=== PATIENT | male | born 1965 | race Caucasian/White ===

== ENCOUNTER 2020-04-04 18:10 | Observation (INO) | payer MEDICARE, MEDICAID, SELFPAY ==
[2020-04-04] VITALS (11 sets, daily range): BP systolic 120–174; BP diastolic 82–98; PULSE 72–95; RESP 16–19; TEMP 36.2–36.9; O2SAT 91–99; BMI 63.6
--- NOTE | 2020-04-04 18:55 | DI.RAD.S_ITS ---
PROCEDURE: XR FOREARM RT 2V INDICATIONS: fracture TECHNIQUE: 2 views of the forearm were acquired. COMPARISON: None. FINDINGS: Bones: There is a comminuted, displaced fracture of the distal right radius better described on wrist radiograph from earlier same day. Please see separate report for details. The ulna and visualized right elbow joint appear intact. Abnormal widening of the distal radial ulnar joint. Soft tissues: No suspicious soft tissue calcifications or masses. No elbow joint effusion visualized. IMPRESSION: 1. Comminuted, displaced distal right radial fracture with abnormal widening of the distal radial ulnar joint. Concurrent ligamentous injury suspected. 2. No acute fracture identified in the ulna. 3. Right elbow appears intact. Dictated by: Flex Rendon M.D. on 04/04/2020 at 19:57 Approved by: Flex Rendon M.D. on 04/04/2020 at 19:59
--- NOTE | 2020-04-04 18:55 | DI.RAD.S_ITS ---
PROCEDURE: XR WRIST RT MIN 3V INDICATIONS: fracture TECHNIQUE: 4 views of the wrist were acquired. COMPARISON: None. FINDINGS: Bones: Comminuted distal right radial fracture with dorsal and radial displacement of the distal fracture fragment. There is also abnormal widening of the distal radial ulnar joint. Ligamentous injury is suspected. The ulna appears intact. Visualized carpal bones appear maintained. No suspicious bony lesions. Scaphoid view: Scaphoid appears intact. The scapholunate interval appears to be maintained. Soft tissues: No suspicious soft tissue calcifications. IMPRESSION: Comminuted distal right radial fracture with moderate radial and dorsal dislocation of the distal fracture fragment. Abnormal widening of the distal radial ulnar joint suggestive of ligamentous injury. Dictated by: Flex Rendon M.D. on 04/04/2020 at 19:55 Approved by: Flex Rendon M.D. on 04/04/2020 at 19:57
--- NOTE | 2020-04-04 19:05 | ED.GENADULT ---
HPI - General Adult General Chief complaint: Extremity Injury, Upper Stated complaint: Fall, compund fx R wrist Time Seen by Provider: 04/04/20 18:37 Source: EMS Mode of arrival: EMS Limitations: no limitations History of Present Illness HPI narrative: Patient is a 54-year-old male brought in by EMS for evaluation of a right wrist fracture. Patient states that he was pulling on a branch at home when either he slipped off the branch of the branch broke and he fell back landing on an outstretched hand. Had immediate deformity. Has bone exposure. Area was covered with a bandage by EMS prior to arrival. Patient reports no other injuries from the event. Related Data Allergies Allergy/AdvReac Type Severity Reaction Status Date / Time No Known Drug Allergies Allergy Verified 04/04/20 18:24 Review of Systems Constitutional Constitutional: Denies fever(s), Denies frequent falls and Denies headache(s) ENT Ears, Nose, Mouth, and Throat: Denies headache(s) Cardiovascular Cardiovascular: Denies rapid heart rate and Denies dyspnea Respiratory Respiratory: Denies dyspnea Gastrointestinal Gastrointestinal: Denies abdominal pain, Denies nausea and Denies vomiting Musculoskeletal Musculoskeletal: Denies tingling Comments: Right wrist pain/deformity Integumentary/Breasts Comments: Bone sticking through skin Joey wrist Neurologic Neurologic: Denies behavioral changes, Denies frequent falls, Denies headache(s) and Denies tingling Psychiatric Psychiatric: Denies behavioral changes Hematologic/Lymphatic Hematologic/Lymphatic: Denies easy bleeding and Denies easy bruising Allergic/Immunologic Allergic/Immunologic: Denies urticaria Patient History Medical History Chronic back pain (Acute) COPD (chronic obstructive pulmonary disease) (Acute) Social History Smoking Status: Current every day smoker Smoking Status: Current every day smoker alcohol intake frequency: 0-2 drinks per day Substance Use Type: does not use Exam Initial Vital Signs Initial Vital Signs: Vital Signs Temperature 98.4 F 04/04/20 18:22 Pulse Rate 82 04/04/20 18:22 Respiratory Rate 16 04/04/20 18:22 Blood Pressure 150/93 H 04/04/20 18:22 Pulse Oximetry 95 04/04/20 18:22 Const General: cooperative, No comfortable (Uncomfortable), well developed and well groomed Limitations: mental status not altered HENMT Head: normal to inspection and normocephalic Resp Effort & Inspection: normal respiratory effort Auscultation: clear to auscultation bilaterally Cardio Rate: regular rate Pulses: radial pulses present on the right GI Inspection: non-distended Skin Other: Patient with a laceration to the ulnar aspect of the right wrist with the distal aspect of the ulna protruding. Neuro General: patient alert and patient awake Cognition: normal cognition Speech: speech normal Sensory Exam: no sensory deficits noted Extrem Other: Patient with obvious deformity with bone protrusion of the right wrist Psych Appearance: grossly normal and well kempt Procedures Orthopedic Fracture Reduction Fracture #1: Time Out Performed: Yes Side: right Fracture Reduction Location: other (Distal radius) Analgesia: procedural sedation Technique: direct manipulation Post Reduction X-rays Demonstrate: acceptable reduction Post-reduction neuro exam: no change Post-reduction vascular exam: no change Splint Applied: Yes Patient Tolerated Procedure: Well Orthopedic Splinting/Casting Injury #1: Side: right Upper Extremity Injury Location: wrist Upper Extremity Immobilizer: sugar tong splint Post splinting neuro exam: intact Post splinting vascular exam: intact Placed by: Provider Procedural Sedation Consent signed: No Time out performed: Yes Indication: fracture/dislocation reduction Presedation Evaluation: See HPI Preparation: manager cardiac cath applied, pulse oximeter, capnometry used and supplemental O2 applied IV Propofol dose (mg): 150 ED Sedation Level: Moderate (Concious) Patient Tolerated Procedure: Well Complications: hypoventilation Interventions: Airway repositioned and Assist by BVM Scores GCS Mari coma scale eye opening: Spontaneous Mari coma scale verbal response: Orientated Crapo coma scale motor response: Obey commands Mari coma scale total score: 15 Course Orders Ordered: ED Orders 04/04/20 18:55 XR forearm RT 2V Stat XR wrist RT min 3V Stat 04/04/20 19:08 Basic Metabolic Panel Stat Complete Blood Count AUTO DIFF Stat 04/04/20 19:52 RT Consult Eval and Treat Now 04/04/20 20:57 XR wrist RT 2V Stat 04/04/20 20:58 Consult to Orthopedic Surgery Stat Hydromorphone HCl (Dilaudid) 0.5 mg IV Q2H PRN PRN Reason: Pain, Severe (7-10) Last Admin: 04/04/20 22:17 Dose: 0.5 mg Documented by: NEETA Sodium Chloride (Normal Saline 0.9%) 1,000 mls @ 125 mls/hr IV CONT VIANEY Last Infusion: 04/04/20 22:25 Dose: 0 mls/hr Documented by: Admin: 04/04/20 22:16 Dose: 125 mls/hr Documented by: NEETA Ondansetron HCl (Zofran) 4 mg IV Q4HR PRN PRN Reason: Nausea And Vomiting Discontinued Medications Cefazolin Sodium (Ancef Vial) 2 gm IV NOW ONE Stop: 04/04/20 18:57 Last Admin: 04/04/20 19:27 Dose: 2 gm Documented by: JACOBO Fentanyl (Sublimaze) 100 mcg IV NOW ONE Stop: 04/04/20 19:47 Last Admin: 04/04/20 20:27 Dose: 100 mcg Documented by: JACOBO Hydromorphone HCl (Dilaudid) 1 mg IV NOW ONE Stop: 04/04/20 18:56 Last Admin: 04/04/20 19:27 Dose: 1 mg Documented by: JACOBO Hydromorphone HCl (Dilaudid) 1 mg IV NOW ONE Stop: 04/04/20 19:18 Last Admin: 04/04/20 19:27 Dose: 1 mg Documented by: JACOBO Hydromorphone HCl (Dilaudid) 1 mg IV NOW ONE Stop: 04/04/20 21:12 Last Admin: 04/04/20 21:16 Dose: 1 mg Documented by: JACOBO Propofol (Diprivan) 200 mg IV NOW ONE Stop: 04/04/20 19:56 Last Admin: 04/04/20 21:03 Dose: 150 mg Documented by: JACOBO Vital Signs Vital signs: Vital Signs - 8 hr 04/04/20 18:22 04/04/20 19:00 04/04/20 20:00 Temperature 98.4 F Pulse Rate 82 93 H Respiratory Rate 16 Blood Pressure 150/93 H 174/89 H 120/91 H Pulse Oximetry 95 04/04/20 20:30 Temperature Pulse Rate 81 Respiratory Rate Blood Pressure 138/93 H Pulse Oximetry 96 Medical Decision Making Lab Data Lab results reviewed: Yes I reviewed the patient's lab results. Result diagrams: 04/04/20 19:08 04/04/20 19:08 Labs: Lab Results 04/04/20 04/04/20 Range/Units 19:08 19:08 WBC 7.1 (4.5-11.0) X10^3/uL RBC 4.33 L (4.5-5.9) X10^6/uL Hgb 13.7 (13.5-17.5) g/dL Hct 41.3 (41-53) % MCV 95.5 (80-100) fL MCH 31.7 (26-34) PG MCHC 33.2 (30-36) % RDW 14.4 (11.6-14.8) % Plt Count 213 (150-400) X10^3/uL Neut % (Auto) 71.4 (50-75) % Lymph % (Auto) 21.3 L (25-40) % Ward % (Auto) 5.4 (3-14) % Eos % (Auto) 1.2 L (2-4) % Baso % (Auto) 0.7 (0-2) % Neut # (Auto) 5100 (4952-7510) /uL Lymph # (Auto) 1500 (7999-7915) /uL Ward # (Auto) 400 (0-900) /uL Eos # (Auto) 100 (0-450) /uL Baso # (Auto) 100 (0-100) /uL Sodium 137 (137-145) mmol/L Potassium 4.6 (3.4-5.1) mmol/L Chloride 105 (98-107) mmol/L Carbon Dioxide 27 (22-32) mmol/L BUN 11 (9-20) mg/dL Creatinine 0.84 (0.66-1.25) mg/dL Estimated GFR > 60.0 (>60) mL/min BUN/Creatinine Ratio 13.1 (6-22) Glucose 104 H (70-100) mg/dL Calcium 9.2 (8.4-10.2) mg/dL Imaging Data Extremity x-ray #1: Radiologist's Impression: [address] [address] XRay Report Signed Patient: Margareth Cortez#: [id number] : 1965Acct:[id number] Age/Sex: 54 / MDate of Service: 04/04/20 Loc: ED Accession Number: [id number] Procedure: XR forearm RT 2V Ordering Provider: Noel Urbina D.O. PROCEDURE: XR FOREARM RT 2V INDICATIONS: fracture TECHNIQUE: 2 views of the forearm were acquired. COMPARISON: None. FINDINGS: Bones: There is a comminuted, displaced fracture of the distal right radius better described on wrist radiograph from earlier same day. Please see separate report for details. The ulna and visualized right elbow joint appear intact. Abnormal widening of the distal radial ulnar joint. Soft tissues: No suspicious soft tissue calcifications or masses. No elbow joint effusion visualized. IMPRESSION: 1. Comminuted, displaced distal right radial fracture with abnormal widening of the distal radial ulnar joint. Concurrent ligamentous injury suspected. 2. No acute fracture identified in the ulna. 3. Right elbow appears intact. Dictated by: Flex Rendon M.D. on 04/04/2020 at 19:57 Approved by: Flex Rendon M.D. on 04/04/2020 at 19:59 Extremity x-ray #2: Radiologist's Impression: [place] [address] XRay Report Signed Patient: Margareth Cortez#: [id number] : 1965Acct:[id number] Age/Sex: 54 / MDate of Service: 04/04/20 Loc: ED Accession Number: [id number] Procedure: XR wrist RT min 3V Ordering Provider: Noel Urbina D.O. PROCEDURE: XR WRIST RT MIN 3V INDICATIONS: fracture TECHNIQUE: 4 views of the wrist were acquired. COMPARISON: None. FINDINGS: Bones: Comminuted distal right radial fracture with dorsal and radial displacement of the distal fracture fragment. There is also abnormal widening of the distal radial ulnar joint. Ligamentous injury is suspected. The ulna appears intact. Visualized carpal bones appear maintained. No suspicious bony lesions. Scaphoid view: Scaphoid appears intact. The scapholunate interval appears to be maintained. Soft tissues: No suspicious soft tissue calcifications. IMPRESSION: Comminuted distal right radial fracture with moderate radial and dorsal dislocation of the distal fracture fragment. Abnormal widening of the distal radial ulnar joint suggestive of ligamentous injury. Dictated by: Flex Rendon M.D. on 04/04/2020 at 19:55 Approved by: Flex Rendon M.D. on 04/04/2020 at 19:57 Postreduction x-ray: Radiologist's Impression: [address] [address] XRay Report Signed Patient: Margareth Cortez#: [id number] : 1965Acct:[id number] Age/Sex: 54 / MDate of Service: 04/04/20 Loc: LB554-8 Accession Number: [id number] Procedure: XR wrist RT 2V Ordering Provider: Noel Urbina D.O. PROCEDURE: XR WRIST RT 2V INDICATIONS: post reduction TECHNIQUE: 3 views of the wrist were acquired. COMPARISON: [facility], CR, XR WRIST RT MIN 3V, 04/04/2020, 18:50. FINDINGS: Bones: Status post interval closed reduction of comminuted distal right radial fracture in improved alignment. There is mild residual dorsal displacement. Improved alignment with decreased widening of the distal radioulnar joint. No suspicious bony lesions. Soft tissues: No suspicious soft tissue calcifications. IMPRESSION: Status post interval closed reduction of comminuted distal right radial fracture with improved alignment. Dictated by: Flex Rendon M.D. on 04/04/2020 at 21:42 Approved by: Flex Rendon M.D. on 04/04/2020 at 21:43 MDM Narrative Medical decision making narrative: Patient with obvious deformity and open fracture of the right wrist. Discussed the case with Dr. De La Rosa with Orthopedics who recommended cleaning and reducing the open fracture and placing him in a splint and admitting under her for surgery tomorrow morning. This was performed. The distal ulna was cleaned with Betadine solution prior to reduction. He was given antibiotics in the emergency department. Patient gave verbal consent for the sedation with his at bedside. Patient was neurovascularly intact prior to the reduction Dr. De La Rosa evaluated the post reduction x-rays and patient will be admitted for surgery tomorrow morning. Discharge Plan Departure Patient Disposition: Admitted as Observation Clinical Impression: Fracture of radius, distal, right, open Qualifiers: Encounter type: initial encounter Fracture morphology: unspecified fracture morphology Admit Date/Time: 04/04/20 20:58 Admit Provider: Ellen De La Rosa
[2020-04-04 19:19] LABS: Add Manual Diff / Slide Review NO; Basophils Absolute Auto 100 /uL (0-100); Basophils Percent Auto 0.7 % (0-2); Eosinophils Absolute Auto 100 /uL (0-450); Eosinophils Percent Auto 1.2 % (2-4); Hematocrit 41.3 % (41-53); Hemoglobin 13.7 g/dL (13.5-17.5); Lymphocytes Absolute Auto 1500 /uL (1100-4500); Lymphocytes Percent Auto 21.3 % (25-40); Mean Corpuscular HGB Conc 33.2 % (30-36); Mean Corpuscular Hemoglobin 31.7 PG (26-34); Mean Corpuscular Volume 95.5 fL (80-100); Monocytes Absolute Auto 400 /uL (0-900); Monocytes Percent Auto 5.4 % (3-14); Neutrophils Absolute Auto 5100 /uL (1500-7000); Neutrophils Percent Auto 71.4 % (50-75); Platelet Count 213 X10^3/uL (150-400); Red Blood Cell Count 4.33 X10^6/uL (4.5-5.9); Red Cell Distribution Width 14.4 % (11.6-14.8); White Blood Cell Count 7.1 X10^3/uL (4.5-11.0)
[2020-04-04] MEDS: HYDROMORPHONE 1 MG INJ IV ×2 (19:27)
[2020-04-04] MEDS: CEFAZOLIN 1 GM VIAL 2 GM IV (19:27)
[2020-04-04 19:29] LABS: BUN Creatinine Ratio 13.1 (6-22); Blood Urea Nitrogen 11 mg/dL (9-20); Calcium 9.2 mg/dL (8.4-10.2); Carbon Dioxide 27 mmol/L (22-32); Chloride 105 mmol/L (98-107); Estimated Glomerular Filt Rate > 60.0 mL/min (>60); Glucose 104 mg/dL (70-100); HEMOLYSIS < 15 (0-50); Potassium 4.6 mmol/L (3.4-5.1); Sodium 137 mmol/L (137-145)
[2020-04-04] MEDS: fentaNYL 100 MCG/2 ML INJ IV (20:27)
--- NOTE | 2020-04-04 20:45 | PC.NURSE ---
sedation performed at bedside by md to reduction of fracture to r wrist splint placed post reduction
--- NOTE | 2020-04-04 20:57 | DI.RAD.S_ITS ---
PROCEDURE: XR WRIST RT 2V INDICATIONS: post reduction TECHNIQUE: 3 views of the wrist were acquired. COMPARISON: [facility], CR, XR WRIST RT MIN 3V, 04/04/2020, 18:50. FINDINGS: Bones: Status post interval closed reduction of comminuted distal right radial fracture in improved alignment. There is mild residual dorsal displacement. Improved alignment with decreased widening of the distal radioulnar joint. No suspicious bony lesions. Soft tissues: No suspicious soft tissue calcifications. IMPRESSION: Status post interval closed reduction of comminuted distal right radial fracture with improved alignment. Dictated by: Flex Rendon M.D. on 04/04/2020 at 21:42 Approved by: Flex Rendon M.D. on 04/04/2020 at 21:43
[2020-04-04] MEDS: propofoL 200 MG/20 ML VIAL IV (21:03)
[2020-04-04] MEDS: HYDROMORPHONE 0.5 MG INJ 1 MG IV (21:16)
--- NOTE | 2020-04-04 21:53 | P.HP_ITS ---
History of Present Illness History of Present Illness Date Patient Seen: 04/05/20 Time Patient Seen: 07:29 Date of Onset of Symptoms: 04/04/20 Chief complaint: Fall, compund fx R wrist Narrative: Christian is a 54-year-old [id number] male that fell back onto his right wrist. He was walking around his track and a stick or limb was sti cking up and about to hit him in the face, he pushed it away, but lost his balance fell backwards landing on his right wrist. He sustained an open fracture dislocation of his wrist with a fracture of the radius and a open extruded ulna head. He is a smoker smokes approximately 3/4 of a pack per day. History of COPD. History of hypertension. No allergies to medications. Currently has family with him home. Denies any other injuries. Does have a long history of low back pain. Denies numbness or tingling endorses throbbing at his wrist and also pain up around the proximal aspect of the sugar-tong splint. Pain medication does improve this. He had an irrigation debridement reduction in the emergency room where he received antibiotics. He has been on scheduled antibiotics on the floo r. He is not on any blood thinners. ate a meal 4:00 p.m. Patient History Medical History Chronic back pain (Acute) COPD (chronic obstructive pulmonary disease) (Acute) Family & Social History Safety & Behavioral: Feels Safe in Current Yes Environment Been Physically Hurt or No Threatened By a Person Tobacco & Substance use: Smoking Status Current every day smoker alcohol intake frequency 0-2 drinks per day Substance Use Type does not use Meds Home Medications and Allergies Allergies Allergy/AdvReac Type Severity Reaction Status Date / Time No Known Drug Allergies Allergy Verified 04/04/20 18:24 Review of Systems Review of Systems Narrative: COPD low back pain hypertension ROS: Yes All systems reviewed with the patient and are negative except as otherwise documented Exam Vital Signs (past 8 hours): - 04/04/20 18:22 04/04/20 19:00 04/04/20 20:00 Temperature 98.4 F Pulse Rate 82 93 H Respiratory Rate 16 Blood Pressure 150/93 H 174/89 H 120/91 H Pulse Oximetry 95 04/04/20 20:30 04/04/20 21:03 Temperature Pulse Rate 81 78 Respiratory Rate 18 Blood Pressure 138/93 H Pulse Oximetry 96 Oxygen Delivery Method Room Air Narrative Exam Narrative: General exam alert oriented male no acute distress appears in moderate discomfort lifting his right arm in the splint above his head. Room smells of smoke/cigarettes HEENT exam normocephalic atraumatic Respiratory exam unlabored on room air lungs clear to auscultation bilaterally CV exam regular rate and rhythm Abdomen soft Right upper extremity in the splint. As slightly wiggles fingers and thumb. Sensation grossly intact. A digits have some dirt on them and under the nails. Brisk capillary refill. Soft upper arm. No tenderness at the shoulder. Left upper extremity full range of motion no deformities no tenderness. Neurovascularly intact Bilateral lower extremities full range of motion no tenderness. Atraumatic. Motor sensory intact Objective Labs Result Diagrams: 04/04/20 19:08 04/04/20 19:08 Labs: Laboratory Results - last 24 hr 04/04/20 04/04/20 19:08 19:08 WBC 7.1 RBC 4.33 L Hgb 13.7 Hct 41.3 MCV 95.5 MCH 31.7 MCHC 33.2 RDW 14.4 Plt Count 213 Neut % (Auto) 71.4 Lymph % (Auto) 21.3 L Wallace % (Auto) 5.4 Eos % (Auto) 1.2 L Baso % (Auto) 0.7 Neut # (Auto) 5100 Lymph # (Auto) 1500 Wallace # (Auto) 400 Eos # (Auto) 100 Baso # (Auto) 100 Sodium 137 Potassium 4.6 Chloride 105 Carbon Dioxide 27 BUN 11 Creatinine 0.84 Estimated GFR > 60.0 BUN/Creatinine Ratio 13.1 Glucose 104 H Calcium 9.2 Assessment & Plan Assessment and plan (1) Fracture of radius, distal, right, open: Qualifiers: Encounter type: initial encounter Fracture morphology: unspecified fracture morphology Status: Acute (2) Tobacco abuse: Problem details: Thorough counseling regarding smoking cessation was had today. Discussed the FX on wound and bone healing. Encouraged patient to stop smoking for wound and bone healing as well as generalized health. Status: Acute Assessment & Plan narrative: distal radius fx, displaced and open extruded ulnar head with distal DRUJ druption, galeazzi variant. Pt ate meal at 4pm.would not be NPO until MN.VSS. rec ED I&D, reduction, splinting and IV abx, will get scheduled IV abx and admission, NPO MN and OR first thing AM for I&D ulnar laceration.ulnar head extrusion, ORIF R DR and possible pinning DRUJ. The risks and benefits of the procedure have been discussed with the patient even opportunity to ask questions. The risks of surgery include but are not limited to infection, malunion, nonunion, persistence of pain, damage to nerves and blood vessels, posttraumatic arthritis, DVT, PE, cardiopulmonary complications and . The patient expressed a thorough understanding of the risks and benefits of surgery and has elected to proceed. Consent was signed. COVID-19 COVID-19 status: Result pending Quality VTE Deep Vein Thrombosis/Pulmonary Embolism Present on Admission: No
[2020-04-04 21:55] LABS: COVID19 -Nasal RAPID Negative (Negative)
[2020-04-04] MEDS: SODIUM CHLORIDE 0.9% 1,000 ML 125 ML IV (22:16)
[2020-04-04] MEDS: HYDROMORPHONE 0.5 MG INJ IV ×2 (22:17→23:43)
--- NOTE | 2020-04-04 23:28 | PC.NURSE ---
Admit/Evening Shift Note- Patient arrived to room via stretcher from ER at 2235. Admit questions done, and medications reviewed. Oriented patient to bed and bed controls, room, lights, phone, menu, bathroom, and call cornelius/tv remote. right arm insling and up on pillows. Safety measures in place. bed alarm activated. call belland phone within reach. Will continue to monitor.
[2020-04-05] VITALS (19 sets, daily range): BP systolic 100–173; BP diastolic 53–89; PULSE 66–84; RESP 10–23; TEMP 35.9–36.8; O2SAT 85–100; BMI 28.9
[2020-04-05] MEDS: HYDROMORPHONE 0.5 MG INJ IV ×6 (01:44→19:22)
[2020-04-05] MEDS: CEFAZOLIN 2 GM/100 ML FROZ.PIGGY IV ×3 (03:07→15:45)
[2020-04-05] MEDS: OXYCODONE IR 10 MG TABLET PO ×4 (03:52→18:38)
--- NOTE | 2020-04-05 07:25 | PC.NURSE ---
Patient lost 2 IVs this shift. The cannulla pulls up enough to kink and occlude, while still being taped. The newest IV is in left hand, which IV site would not accept, states it was a duplicate. So I had to chart it was in the left wrist.
--- NOTE | 2020-04-05 07:44 | PM.PREOP ---
Pre-operative Note COVID-19 COVID-19 status: Negative Result date/Date tested (Pos, Neg/Pending): 04/04/20 Interval Note History & Physical reviewed/Exam performed by Physician: Yes Changes to H&P: No
--- NOTE | 2020-04-05 07:45 | P.OP_ITS ---
Operative Date/Time/Diagnoses Date of procedure: 04/05/20 Time of procedure: 08:30 Pre-op diagnosis: 1. Displaced extra-articular fractured distal radius 2. Open dislocation distal radial ulnar joint 3. Tobacco use disorder Post-op diagnosis: same Procedure & Clinicians Procedure: 1. Open reduction internal fixation extra-articular right distal radius fracture CPT code 76433 2. Open reduction internal fixation, pinning open dislocation distal radial ulnar joint CPT code 49556-25 3. Debridement of skin subcutaneous tissue muscle and bone at the site of an open distal radial ulnar joint dislocation CPT code 67430 Same procedure as scheduled: Yes Indications: Patient is a 54-year-old girvc-iget-djtcnpei male that fell back onto his outstretched right hand he sustained a open Galeazzi variant injury with extrusion of the ulnar head open traumatic dislocation of the distal radial ulnar joint and fracture of the distal radius. He was seen in the emergency room washed out reduced and received IV antibiotics. Vital signs were stable. He had just consumed medial so he was admitted on scheduled antibiotics and scheduled for operative debridement and treatment status safe interval. COVID- 19 testing was obtained and was negative. The risks and benefits of the procedure have been discussed with the patient even opportunity to ask questions. The risks of surgery include but are not limited to infection, malunion, nonunion, persistence of pain, damage to nerves and blood vessels, posttraumatic arthritis, DVT, PE, cardiopulmonary complications and . The patient expressed a thorough understanding of the risks and benefits of surgery and has elected to proceed. Consent was signed. Surgeon: Ellen De La Rosa Click Yes if Unassisted: Yes Anesthesia Type: General and Local Operative Notes Findings: Patient sustained a right open Galeazzi variant fracture dislocation with fracture of the distal radius and open extrusion of the distal ulnar head and dislocation of the DRUJ.Open ulnar head extrusion 4 cm longitudinal wound right over the distal ulna for the open distal radius ulnar joint dislocation had occurred. Small amount of foreign material-specs of dirt were removed. Following I&D of the open ulna new drapes and gloves were changed. Then open reduction internal fixation of the distal radius fracture was undertaken with a [employer] plate. Following this the distal radioulnar joint Shuck test was completed and was unstable therefore the DRUJ was pinned with 2x062 K-wires Closure Type: primary Specimen(s): none sent Applied: implant(s) (Standard distal radius plate hand innovations volar distal radius plate and screws. 2 x 062 K-wires for DRUJ) Estimated Blood Loss (mL): 30 Blood products transfused: none Tourniquet time (min): 90 Procedure in detail: Patient was seen in the preoperative area the site of surgery was marked informed consent confirmed. Patient was brought back to the operating room by the anesthesia team and placed supine on the operative table with a hand table on the right side. All bony prominences were well-padded. Well-padded brachial tourniquet was placed. General anesthetic was administered. The right upper extremity was prepped and draped in the standard sterile fashion. A formal time-out procedure was performed confirming patient's side and site of surgery administration of preoperative antibiotics. All were i n agreement. SCDs were 1 the lower extremities. Esmarch was used for exsanguination the tourniquet was elevated to 250 mm of mercury. Attention was turned to the I and D. Attention was turned to the open wound at the ulnar aspect of the arm or the ulnar head extrusion had occurred. The skin edges and soft tissues fascia and muscle were debrided. The bone in was also cleansed and debrided. 3 L of sterile saline with cysto tubing was used for thorough irrigation. Note the ulnar head was completely exposed for this irrigation. There was small specks of foreign material or dirt that were irrigated out of the wound. Once this was completed the ulna was again reduced the drapes were changed and gloves were changed and attention turned to the right distal radius. Through a separate standard volar FCR approach incision was taken over the distal radius and this was a zigzag across the wrist crease in the extended FCR fashion. The sheath of the FCR was then opened the FCR tendon was retracted ulnarly to protect the palmar cutaneous branch of the median nerve. The floor of the FCR was then opened to expose the deep muscles. The FPL was retracted ulnarly and the pronator quadratus was released from the radial border and reflected ulnar to expose the distal radius in the distal radius fracture. Fracture was disimpacted and cleaned. Note there was a free fragment ulnar within the carpal tunnel this was completely devascularized was removed. The radial shaft was pronated in order to release the hematoma and periosteum dorsally and the brachioradialis was released from the distal fragment. Reduction was obtained and held with a K-wire. The standard volar distal radius right hand innovations plate was selected and fit to the bone. This was placed provisionally with a K-wire to check the distal placement once this was satisfactory and nonlocking 3 5 screw was placed in the oblong hole and secured. Distal screws were then placed in the plate starting ulnarly with nonlocking screws followed by locking screws and pegs. Once this was completed the regional nonlocking screws at the distal aspect of the fracture were changed out for a locking pegs to reduce prominence. Then the final nonlocking shaft screws were placed proximally. Once the distal radius fixation was completed the ulnar shock test was completed for the DRUJ which was unstable. This was felt to even be still unstable in supination therefore the decision was made to pin the DRUJ. 2061 K-wires were advanced from the ulna into the distal radius while holding the DRUJ UJ reduced in supination. Once this was completed the pin sites were bent and cut. The tourniquet was released hemostasis was achieved. The wounds were closed in standard layered fashion with 3 0 Vicryl and 3 0 Monocryl. 20 cc of 0.25% Marcaine with epinephrine was injected for local anesthetic. Xeroform was placed over the incision sites followed by 4x4s and Webril. The arm was splinted in a long-arm splint in supination. The patient was woken from anesthesia and taken to the PACU in good condition. There no immediate complications from this procedure. All counts were correct. Complications: none Post-operative Condition: stable Disposition: PACU Plan for aftercare: Returned to acute care floor and patient admitted for IV antibiotics. Indication for inpatient admission due to open fracture requirement of operative debridement fixation and IV antibiotics and pain control. Will receive 24 hours of postop IV antibiotics then discharged on 5 days oral antibiotics. Follow up in 1 week for wound check.
--- NOTE | 2020-04-05 08:06 | PC.NURSE ---
Addendum entered by Iliana Ramos R.N. 04/05/20 15:24: Post-op: Late entry Arrived back to room 213 at 1315. Somnolent but awakened easily. Reports RUE pain well-managed with meds given intra-op/PACU. Vitals stable, 2L O2 per NC w/ cont pulse ox in place and reading well on R hand. Patient is able to wiggle fingers of R hand, and they are warm/pink and with cap refill <2seconds. Unable to palpate radial pulse r/t splint on arm. Assisted to bathroom at change of shift where he was able to void without difficulty. Back into bed with O2 on, SCD's to BLE's and RUE elevated on pillows. Able to make needs known and calls appropriately. Light and belongings within reach, bed alarm on. Original Note: Shift summary: Patient alert and oriented X3. Very restless and with C/O severe pain in RUE. RUE splinted and he's trying to elevate it as much as possible, refusing sling. Able to move fingers of RUE slightly, hand pink/warm, cap refill <2 sec. Reported slight tingling in RUE. Medicated with PRN IV Dilaudid for breakthrough pain. NPO since admit except for water with meds. Off floor to surgery at 0800, [employer] aware that consent is on chart but still needs to be witnessed.
[2020-04-05] MEDS: LACTATED RINGERS 1,000 ML 42 ML IV ×2 (08:10→10:42)
--- NOTE | 2020-04-05 08:48 | SUR.OPER ---
Supine on padded OR bed, head on pillow, left arm secured on padded arm boards at <90 degrees abduction, Right arm on hand table under control of surgeon. Legs uncrossed, safety belt at thigh, tape over blanket over lower legs.
[2020-04-05] MEDS: BUPIVACAINE 0.25% W/ EPI 30 ML VIAL INJ (08:59)
[2020-04-05] MEDS: OXYCODONE/ACETAMINOPHEN 5/325 TABLET 1 TAB PO ×2 (11:29→11:53)
[2020-04-05] MEDS: HYDROMORPHONE 2 MG INJ IV ×4 (11:40→11:55)
[2020-04-05] MEDS: KETOROLAC 30 MG/ML VIAL IV ×3 (11:59→22:27)
[2020-04-05] MEDS: LORazepam 2 MG/ML INJ 0.25 MG IV (12:31)
--- NOTE | 2020-04-05 12:57 | SUR.PHASEI ---
Addendum entered by Rose Mary Jhaveri R.N. 04/05/20 13:18: Patient taken back to room in bed by nursing staff. Report given to receiving VIRGEN Hernandez. Patient resting peacefully in bed, wakes up appropriately when spoken to. Vital signs remain stable with bp of 130/77 and O2 sat of 94% Original Note: Patient incredibly anxious and attempting continuing to ask to go outside in PACU. Received order for 0.25mg ativan. Accidentally administered 0.5ml or 1mg ativan. Patient shows no adverse effects, is now resting peacefully in bed. All vitals now more stable than before administration of ativan and is now relaxing in bed with eyes closed and even, unlabored breathing, awakens easily when talked to. Dr. De La Rosa made aware of error, no new orders noted.
[2020-04-05] MEDS: LACTATED RINGERS 1,000 ML 100 ML IV (14:00)
[2020-04-05] MEDS: NICOTINE 14 PATCH 14 MG TOP (14:02)
--- NOTE | 2020-04-05 14:06 | CM.DANOTE ---
DCP Brief Assessment Patient is a 54 year old male who was admitted on 04/04/20 for Compound wrist Fx. Pt has [facility] and [facility] for insurance and his PCP is not listed. EMR was reviewed. Per Surgeon, pt with hx of COPD and smoking daily and has open fx dislocation of the wrist. Pt NPO for I&D and possible need for pinning to happen this morning. Per RN, pt off floor at 0800 for surgery and as of 1400 pt still not back up to the floor but out of surgery and in the recovery room. OT could be beneficial for eval and recommendations for any possible d/c planning needs tomorrow if stable. Plan: SW to follow tomorrow after pt returns from surgery and likely OT eval towards determining any d/c needs. ANCELMO Parsons
[2020-04-05] MEDS: ACETAMINOPHEN 325 MG TABLET 975 MG PO ×2 (15:25→20:40)
--- NOTE | 2020-04-05 16:10 | PT-IP ANOTE ---
Received PT orders and reviewed chart. Per nursing, pt has been ambulating to the bathroom with little assist since surgery for open R distal radius fracture. PT holds evaluation at this time and will await opinion from OT regarding any PT needs.
--- NOTE | 2020-04-05 17:26 | P.OP_ITS ---
Operative Date/Time/Diagnoses Date of procedure: 04/05/20 Time of procedure: 17:27 Pre-op diagnosis: Deep space infection left hand cellulitis with abscess L 0 3.119 Post-op diagnosis: same Procedure & Clinicians Procedure: 1. Irrigation debridement mid palmar bursa CPT code 85809 left hand 2. Removal foreign body, wood fragment left hand CPT code 89930 3. Drainage tendon sheath left middle finger CPT code 01807-17 4. drainage tendon sheath left ring finger CPT code 02534-94 Same procedure as scheduled: Yes Indications: Patient is a 46-year-old male who sustained a penetrating trauma injury to his left hand from a piece of treated would 7 days ago. This penetrated in his 3rd 4th palmar web space. He got increasing pain and swellin g. He saw his PCP at the end of the week and got Augmentin. He had this for a few days swelling pain and range of motion worsened. Swelling was worse and increasing pain suspicious for abscess possible residual foreign body. Patient was indicated for exploration drainage removal of foreign body and possible tendon sheath irrigation. In the emergency room had exquisite tenderness at the mid palmar space centered on the middle and ring finger MCP joints with flexed posturing and pain with range of motion of the ring and middle fingers. The risks and benefits of the procedure have been discussed with the patient even opportunity to ask questions. The risks of surgery include but are not limited to infection, stiffness or need for additional procedures, persistence of pain, damage to nerves and blood vessels, posttraumatic arthritis, DVT, PE, cardiopulmonary complications and . The patient expressed a thorough understanding of the risks and benefits of surgery and has elected to proceed. Consent was signed. Surgeon: Ellen De La Rosa Click Yes if Unassisted: Yes Anesthesia Type: General and Local Operative Notes Findings: Pointed swelling at the volar MCPs over the A1 thee region of the middle and ring fingers of the left hand. On incision there was gross yellow purulence that tracked throughout the mid palmar space. This did not appear to track dorsally. This did track a distally into the web spaces more superficial ly along the middle and ring fingers. Based on this tracking deep to the level of the A1 thee and the distal into the fingers of the flexor tendon sheath was opened both proximally and distally at the middle and ring fingers and irrigated. There was no gross purulence noted with in the tendon sheath itself however there was gross purulence all throughout the mid palmar space surrounding these areas. A wood splinter remain it was found a volarly overlying the 3rd A1 thee Closure Type: not applicable Specimen(s): other (Culture and foreign body-with splinter) Applied: other (Gauze packing was placed) Estimated Blood Loss (mL): 20 Blood products transfused: none Tourniquet time (min): 42 Procedure in detail: Patient was seen in the preoperative area the site of surgery was marked informed consent confirmed. The patient was brought back to the operating room with anesthesia and placed supine on the operative table. General anesthesia was administered. A well-padded nonsterile brachial to urniquet was placed. SCDs were 1 on the lower extremities. All bony prominences well padded. The left upper extremities prepped and draped in standard sterile fashion. A formal time-out procedure was performed confirming the patient's side and site of surgery. Current of vancomycin was running as was started in the ER. Holly exsanguination was completed and the tourniquet was raised to 250 mm mercury. Attention was turned to the left palm. Swelling was centered over the metacarpal heads and A1 thee areas of the middle and ring finger. Decided to proceed with trigger finger style incision rather than a large curved distal incision for ease of healing. Therefore a standard longitudinal incision was taken over the A1 thee of the middle finger on skin incision there was gross p urulence noted. This was dissected bluntly down to the level of the A1 thee. The purulence was noted to track radially and ulnarly along the mid palmar bursa to the ring finger and then out into of the was placed in superficial volar a tissues of the 3rd digit. Similar A1 thee incision was made over the ring finger with the same findings. Foreign body was located over the middle finger incision the distal in the A1 thee this was a sliver that appeared to be wood. This was sent for microbiology. Once the initial gross purulence was evacuated. The A1 pulleys of the middle and ring fingers were isolated through the respective incisions these were released to expose the flexor tendons below. Additionally a distal transverse incision was made just proximal to the distal flexor crease at the middle finger and at the ring finger to expose the flexor tendon sheath distally. Using a 14 gauge angiocath the tendon sheaths were irrigated thoroughly from proximal to distal and was noted that a clear saline came out both ends of these was no gross purulence in the tendon sheaths. Again there was purulence noted in the superficial tissues tracking into the proximal aspects of the volar digits. After irrigation of the tendon sheaths attention was again returned to the mid palmar bursa which was thoroughly irrigated again with saline a with extent of the abscess explored and debrided also using a rongeur. Following this a dilute Betadine solution was used to thoroughly soak the wounds for approximately 3 minutes and this was rinsed with saline once again. Next clean gauze was used to pack all incisions including the 2 mid palmar incisions and the distal finger incisions. 10 cc of 0.25% Marcaine with epinephrine was used as local anesthetic. Clean gauze and Kerlix was then placed. The patient was woken from anesthesia and taken to the recovery room in good condition. All counts were correct. There no immediate complications to this procedure. Complications: none Post-operative Condition: stable Disposition: PACU Plan for aftercare: Admission to the floor with broad-spectrum antibiotics. These will be tailored based on intraoperative cultures. Will start warm soapy soaks b.i.d. tomorrow morning the b.i.d. packing and soaks. Incisions will heal secondarily. Will transition to oral antibiotics as cultures dictate.
--- NOTE | 2020-04-05 17:55 | PC.NURSE ---
Addendum entered by Ellyn Mueller R.N. 04/05/20 20:50: Numbness to his fingers improved. now only the tips of his ring finger and middle finger are numb. notified provider that his pain is consistently 8/10 or higher despite giving all his pain meds around the clock. VTO to change oxycodone to dilaudid 4mg PO and 1mg IV dilaudid. Addendum entered by Ellyn Mueller R.N. 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 educated pt regarding smoking in the hospital. two cartons of cigarette placed in the safe. Original Note: Pt was given Tylenol, toradol and 10mg oxycodone for pain 9/10. pt reports it worked a little bit. administered 1mg dilaudid for pain 8/10. ice packs. RUE elevated. sling on. non-wt bearing on RUE. continue to monitor.
[2020-04-05] MEDS: DOCUSATE 100 MG CAPSULE PO (20:40)
[2020-04-05] MEDS: HYDROMORPHONE 1 MG INJ IV (20:41)
[2020-04-05] MEDS: HYDROMORPHONE 4 MG TABLET PO (21:30)
[2020-04-06] MEDS: CEFAZOLIN 2 GM/100 ML FROZ.PIGGY IV (00:18)
[2020-04-06] MEDS: HYDROMORPHONE 4 MG TABLET PO ×3 (01:02→12:09)
[2020-04-06] MEDS: LACTATED RINGERS 1,000 ML 100 ML IV (01:04)
[2020-04-06] MEDS: HYDROMORPHONE 1 MG INJ IV ×2 (03:34→06:06)
[2020-04-06 05:00] VITALS: BP 113/65; PULSE 71; RESP 20; TEMP 36.3; O2SAT 99
[2020-04-06 07:38] VITALS: BP 123/72; PULSE 70; RESP 16; TEMP 36.2; O2SAT 99
[2020-04-06 07:40] VITALS: PULSE 73; RESP 16; O2SAT 98
[2020-04-06] MEDS: ACETAMINOPHEN 325 MG TABLET 975 MG PO (08:26)
[2020-04-06] MEDS: KETOROLAC 30 MG/ML VIAL IV (08:26)
[2020-04-06] MEDS: NICOTINE 14 PATCH 14 MG TOP (08:27)
[2020-04-06] MEDS: DOCUSATE 100 MG CAPSULE PO (08:27)
--- NOTE | 2020-04-06 08:59 | PM.DS.1 ---
History of Present Illness History of Present Illness Date Patient Seen: 04/06/20 Time Patient Seen: 09:00 Date of Onset of Symptoms: 04/06/20 Chief complaint: Fall, compund fx R wrist Narrative: Christian is a 54-year-old [id number] male that fell back onto his right wrist. He was walking around his track and a stick or limb was sticking up and about to hit him in the face, he pushed it away, but lost his balance fell backwards landing on his right wrist. He sustained an open fracture dislocation of his wrist with a fracture of the radius and a open extruded ulna head. He is a smoker smokes approximately 3/4 of a pack per day. History of COPD. History of hypertension. No allergies to medications. Currently has family with him home. Denies any other injuries. Does have a long history of low back pain. Denies numbness or tingling endorses throbbing at his wrist and also pain up around the proximal aspect of the sugar-tong splint. Pain medication does improve this. He had an irrigation debridement reduction in the emergency room where he received antibiotics. He has been on scheduled antibiotics on the floor. He is not on any blood thinners. ate a meal 4:00 p.m. Discharge Providers Provider Date of admission: 04/05/20 07:51 Discharge Date: 04/06/20 Consults: 04/04/20 20:58 Consult to Orthopedic Surgery Stat Comment: Consulting Provider: Ellen De La Rosa Reason for consultation: admission r wrist fracture Has provider been notified: Yes 04/05/20 13:32 Consult to Discharge Planning Routine Comment: Consult to Physical Therapy Evaluate & Treat Comment: MARY GORE Physician Instructions: Evaluate and Treat Consult to Respiratory Therapy Evaluate & Treat Comment: Physician Instructions: Evaluate and treat 04/05/20 14:46 Consult to Occupational Therapy Evaluate & Treat Comment: Physician Instructions: Evaluate and treat Discharge provider: Ellen De La Rosa MD Summary Hospital Course Discharge Diagnosis: Right open wrist fracture dislocation, DRUJ disruption Hospital Course: Patient was admitted from the ER to the acute care unit. He was maintained on scheduled antibiotics for his open fracture. He was taken to the operating room where he underwent an irrigation debridement of the open ulna and DRUJ dislocation and an open reduction internal fixation of the right distal radius fracture. The DRUJ was unstable in supination after radial fixation so this was pinned with K-wires. He was placed into a supination splint. Was returned to the floor. He tolerated a p.o. diet and medications. On postoperative day 1 her pain was controlled appropriately for discharge. He finished his 24 hours of postoperative IV antibiotics. He was counseled extensively on smoking cessation. He had a nicotine patch placed. Per report he was caught by nursing staff attempting to smoke in the restroom of his hospital room. We discussed risks of smoking for generalized health and for wound and bone healing. Status at Discharge Cognitive/behavioral status at discharge: oriented Functional status at discharge: independent ambulation Overall status at discharge: patient is progressing back to baseline Time Spent with Patient Time spent: Less than 30 minutes Exam Vital Signs (past 8 hours): - 04/06/20 05:00 04/06/20 07:40 Temperature 97.4 F L Pulse Rate 71 73 Respiratory Rate 20 16 Blood Pressure 113/65 Pulse Oximetry 99 98 Oxygen Delivery Method Room Air Oxygen Flow Rate 0 Narrative Exam Narrative: General exam is alert oriented male in no acute distress HEENT exam normocephalic atraumatic Respiratory exam unlabored on room air Heart exam regular rate and rhythm Upper extremity examination right upper extremity and supination splint. Patient does complain of some tightness of this is just loosened and split little bit which provided immediate relief for the patient. Compartments are soft. Demonstrates flexion extension of his fingers. Sensation grossly intact to light touch median radial ulnar. Brisk capillary refill. Objective Labs Result Diagrams: 04/04/20 19:08 04/04/20 19:08 Discharge Plan Discharge Plan Patient Disposition: Home Discharge orders & Medications Prescriptions: New ketorolac 10 mg tablet 10 mg PO Q6H 3 Days Qty: 12 RF: 0 cephalexin [Keflex] 500 mg capsule 500 mg PO QID Qty: 20 RF: 0 nicotine 14 mg/24 hr Patch 24 Hour 14 mg topical DAILY Qty: 10 RF: 0 docusate sodium [DOK] 100 mg Capsule 100 mg PO BID Qty: 30 RF: 0 hydromorphone 4 mg Tablet 4 mg PO Q4HR PRN (Reason: Pain, Severe (7-10)) Qty: 40 RF: 0 ondansetron 4 mg Tablet,Disintegrating 4 mg PO Q4HR PRN (Reason: Nausea And Vomiting) Qty: 7 RF: 1 Follow up/Referrals: Ellen De La Rosa MD [Physician] - (Follow-up in 2 weeks (10-14 days from surgery day)) Diet/Activity/Treatments Diet: Diet as Tolerated Activity: Nonweightbearing right upper extremity. Keep splint clean dry and intact. Other treatments: At-Home Instructions - Dr. De La Rosa Surgery: Irrigation debridement and fixation of open right wrist fracture dislocation Cast/Splint/Dressing Care Instructions 1) Keep cast/dressing clean and dry. 2) May bathe - but cast/dressing must remain dry. 3) Should the cast become wet, you need to come into emergency department or call your physician's clinic immediately for cast removal and replacement. Moisture can cause skin breakdown and lead to infection if left untreated. 4) Do not stick any sharp object down the cast to itch, as this can cause scrapes/cuts/punctures which can lead to infection. 6) Observe for increasing pain in the extremity with the cast, finger/toe-tips turning blue/purple, or numbness and tingling in your toes/fingers. Should any of these symptoms arise, you need to be seen immediately for evaluation of swelling and increasing compartment pressures within your affected extremity. 7) Keep your affected extremity elevated - Toes Above your Nose? - This is jaramillo in the first two weeks after surgery to minimize swelling. 8) You may ice your extremity, being careful to prevent melting ice from saturating into the splint/cast. Activity No heavy lifting greater than 10 pounds. No driving while on narcotic pain medication. Do not get your dressing/cast/splint wet! You must remain non-weight bearing on your operative extremity. Elevate the extremity above the heart level to help with swelling. No driving until you are otherwise instructed by your physician. This will be addressed at your first follow-up appointment. Discharge Pain Medications You will be given a prescription for pain medication. You should start taking this the same day after your surgery. Wean off as tolerated. Do not wait to take the pain medication until the pain is severe, as it will be difficult to catch up once this occurs. The pain medication usually reaches its full effect ~1 hour after ingesting. If you have been sent home on Colace, this medication should be taken until you are off all narcotic (i.e. Vicodin, Percocet, Oxycodone, Dilaudid/hydromorphone, etc) pain medications, to prevent constipation. You may also obtain this or another stool softener over the counter to prevent or alleviate constipation. Percocet or Vicodin have Tylenol in their ingredient lists. You must be careful not to exceed 3,000mg (3 grams) of Tylenol, from all sources, within a single 24-hr period. This means that you may not take more than 10 pills within a 24-hr period. Do NOT take Regular or Extra Strength Tylenol when taking your Percocet or Vicodin medications. -Some common side effects of the narcotic pain medications (Percocet, Oxycodone, hydromorphone/Dilaudid, Vicodin, etc.) include nausea and itching. Benadryl is a great over the counter medication that helps calm your stomach, decreases your anxiety levels, and minimizes the itching. You can easily purchase this at your local pharmacy as an [id number] medication. Please abide by the instructions as printed on the bottle. If your nausea persists, make sure to take small amounts of crackers or other design engineering technician foods. Follow-Up/Emergency Contacts Please call for an appointment in either [place] or [place], if one has not been scheduled. Follow up 1 week after surgery. [phone] Contact the office if you have any of the following: ? Painful swelling or numbness ? Unrelenting pain ? Fever (over 101?- it is normal to have a low grade fever for the first day or two following surgery) or chills ? Redness around the incisions ? Color changes ? Continuous bleeding or drainage from the incision (a small amount is expected) ? Excessive nausea or vomiting ? Difficulty breathing If you have an emergency that requires immediate attention, proceed to the nearest emergency room. Pain Medications: It is the policy of [facility] that narcotic medications will only be refilled during office hours. Additionally, due to the alarming rate of narcotic pain medication abuse/dependence, it has become necessary for physician practices to closely manage patient use of prescription narcotic pain relievers, such as Vicodin (Girard), Percocet, and Oxycodone products. Narcotic pain management in the postoperative period may not exceed 6 weeks. If narcotic pain management is required beyond 90 days, then a referral to a Chronic Pain Specialist will be made. If a request for a medication prescription has been made, the physician must review your chart prior to authorizing the request. Please be patient with office staff. If you call during patient hours, your call may not be returned until the end of the day. A visit will be required before a narcotic prescription can be issued. Dr. Ellen De La Rosa [place] [email or web address] Skin/Wound/Dressing Care Report to your healthcare provider any signs of infection, such as:: chills, fever, night sweats, increased pain, unusual drainage and unusual redness Dressing: Keep splint clean dry and intact. May remove wrapped Ced if needed. Quality VTE Deep Vein Thrombosis/Pulmonary Embolism Present on Admission: No
--- NOTE | 2020-04-06 11:25 | OT.IP.EVAL ---
Current Diagnoses Unspecified fracture of the lower end of right radius, initial encounter for open fracture type I or II (04/05/20) Tobacco use (04/05/20) Surgery Performed Operation Date: 04/05/20 08:00 Actual Procedures p ORIF Wrist Fracture(Right) - Ellen De La Rosa MD Past Medical History (Last Reviewed 04/05/20 @ 07:32 by Ellen De La Rosa MD) Chronic back pain (Acute) COPD (chronic obstructive pulmonary disease) (Acute) Occupational Therapy Inpatient Evaluation/Re-Eval M1 PT/OT-IP Prior Functional Status Start: 04/06/20 11:28 Freq: NEEDED Status: Active Protocol: Document 04/06/20 11:29 CGR (Rec: 04/06/20 11:38 CGR [email or web address]) Medical Review Prior Functional Status Medical History Reviewed Yes Communication Pt is an effective verbal communicator. Mobility and Gait Pt is IND without AD Activities of Daily Living and IADL's Pt is IND without AD Social History Household Members family Living Arrangements House Number of Floors (Floors) One Floor Number of Stairs To Enter/Railing? 1 step Home Environment Standard Height Toilet,Tub/ Shower,Tub/Shower Doors Home Equipment Grab Bars Near Toilet,Grab Bars In Shower Employment Status Unemployed Additional Social History Comment Pt states he is on SSI M2 OT-IP Current Condition Start: 04/06/20 11:28 Freq: Status: Active Protocol: Document 04/06/20 11:29 CGR (Rec: 04/06/20 11:38 CGR [email or web address]) Occupational Therapy Current Condition Current Condition Evaluation Date 04/06/20 Treatment Diagnosis R open wrist fx and dislocation s/p 04/05 ORIF Diagnosis Onset Date 04/05/20 M3 OT- IP Subjective and Pain Start: 04/06/20 11:28 Freq: Status: Active Protocol: Document 04/06/20 11:29 CGR (Rec: 04/06/20 11:38 CGR [email or web address]) OT- Subjective Occupational Therapy Visit Type Type Initial Evaluation Visit Start Time 11:09 Visit Stop Time 11:25 Total Visit Minutes 16 OT Pain Assessment Pain When Pain Assessed At Rest Pain Present Pain Present Pain Reported Location rt wrist Intensity 9 Management Techniques Modification of Treatment,Re- positioning M4 OT- IP ADL's Start: 04/06/20 11:28 Freq: Status: Active Protocol: Document 04/06/20 11:29 CGR (Rec: 04/06/20 11:38 CGR [email or web address]) OT ITY-[id number]-[id number] Comments OT Self-Feeding Comments not meal time OT ADL-Grooming Comments OT Grooming Comments not performed OT ADL-Oral Care Comments Oral Care Comments pt decliend, already performed OT ADL-Dressing General Eval Upper Body Dressing Ability Independent Comments OT Dressing Comments donning sling with IND OT ADL-Toileting General Evaluation Toileting Ability Independent Comments OT Toileting Comments simulated OT ADL-Bathing Comments OT Bathing Comments not performed M5 OT- IP IADL's Start: 04/06/20 11:28 Freq: Status: Active Protocol: Document 04/06/20 11:29 CGR (Rec: 04/06/20 11:38 CGR [email or web address]) OT-Instrumental Activities of Daily Living Deficits IADL Deficits Identified No Deficits Home Safety Awareness Awareness of Need for Assistance at Home Good Awareness Ability to Problem Solve Emergency Able to Problem Solve Situations Medication Management Medication Management No Deficits Identified Money Management Money Management No Deficits Identified Meal Preparation Meal Preparation No Deficits Identified Director Of Cloud Services Director Of Cloud Services No Deficits Identified M6 OT- IP Functional Cognition Start: 04/06/20 11:28 Freq: Status: Active Protocol: Document 04/06/20 11:29 CGR (Rec: 04/06/20 11:38 CGR [email or web address]) Cognitive Factors Limiting Selfcare Function Cognitive Ability Level of Alertness Alert Patient Orientation Name,Age,Birthday,Month,Date, Year,Day of Week,Place, Situation Attention Span Ability Capable of Focused Attention, Capable of Sustained Attention Ability to Follow Commands Able to Follow Multi-Step Commands Memory Description No Deficits Noted Safety Awareness No Deficits Noted Problem Solving Ability No deficits Noted OT- Vision and Hearing OT- Hearing Assessment OT- Hearing Assessment WFL OT- Vision Assessment Visual Acuity Glasses For Reading Visual Attentiveness WFL Occular Pursuits WFL Visual Convergence WFL M7 OT- IP Mobility and Balance Start: 04/06/20 11:28 Freq: Status: Active Protocol: Document 04/06/20 11:29 CGR (Rec: 04/06/20 11:38 CGR [email or web address]) OT- Bed Mobility Assessment Rolling Level of Assistance Independent Supine to Sit Supine to Sit Assist Independent Sit to Supine Sit to Supine Assist Independent Scooting Scooting to Edge of Bed Independent OT-Transfer Assessment Sit to and From Stand Sit to and from Stand Independent Transfers Transfer Ability Independent Technique Transfer Destination Bed,Chair,Toilet Transfer Technique Stand Step Pivot Devices Transfer Assistive Devices None OT- Gait Assessment Gait Gait Assistance Required: Independent Assistive Devices Assistive Device None OT- Balance Assessment Sitting Balance and Reactions Static Sitting Balance Ability Normal Dynamic Sitting Balance Ability Normal Standing Balance and Reactions Static Standing Balance Ability Normal Dynamic Standing Balance Ability Normal M8 OT- IP Objective Assessments Start: 04/06/20 11:28 Freq: Status: Active Protocol: Document 04/06/20 11:29 CGR (Rec: 04/06/20 11:38 CGR [email or web address]) OT Gross Range of Motion Upper Extremity Range of Motion Assessment Right Impaired ROM Impairments In cast from wrist to elbow. OT Strength Upper Extremity Strength Assessment Right Impaired Comments Strength Comments Pt has a hx of rotator cuff sx on the R shld OT- Coordination Assessment Upper Extremity Finger to Nose Test Right UE Impaired Finger Tapping Test Right UE Impaired Comments Coordination Comments R impaired from new injury OT-Muscle Tone Assessment Muscle Tone WNL Yes OT Sensation Assessment Edema Edema Present Edema Comments the the right visible fingers M9 OT- IP Assessment and Plan Start: 04/06/20 11:28 Freq: Status: Active Protocol: Document 04/06/20 11:29 CGR (Rec: 04/06/20 11:38 CGR [email or web address]) OT Summary Assessment and Plan Potential Rehabilitation Potential Excellent Analytic Complexity at Evaluation Low Summary OT Impairments Pain,Range of Motion,Strength, Coordination Progress Towards Goals Progressing Toward Goals,Safe For Discharge Assessment Summary Pt presents as a low complexity evaluation s/p fall and R wrist open fx with dislocation. Pt underwent 04/05 ORIF. Pt educated on UE dressing, donning and doffing of the sling, UE therex for the RUE, and edema /pain management. Pt safe for d/c home. No further OT needs at this time. Frequency of Treatment Frequency Of Treatment Discharge Discharge Recommendations OT Discharge Recommendations Home Transportation Needs at Discharge Private Vehicle
--- NOTE | 2020-04-06 11:29 | PT-IP ANOTE ---
OT saw this pt today and identified no PT needs. Will discharge order but PT remains available if pt condition changes.
--- NOTE | 2020-04-06 13:49 | PC.NURSE ---
Discharge note: Discharge orders and Rx given to patient. Discussed importance of F/U with Ortho in 1 week, antibiotic adherence, new prescription side effects, and activity. Discussed importance of non weight bearing to RUE, dressing site care, and s/sx of infections. Verbalized understanding of instructions. Home via private vehicle with daughter.
== END 2020-04-06 14:48 | disposition home or self-care (01) | DRG 512 ==
LOC: ED 19:13 → AC 21:48
PROVIDERS: Admitting Provider Orthopaedic Surgery Foot and Ankle Surgery; Emergency Provider Emergency Medicine; Referring Provider Emergency Medicine; Visit Provider Orthopaedic Surgery Foot and Ankle Surgery
PROC: (CPT 25607; principal; 2020-04-05 08:00)
DX: S52.37 Galeazzi's fracture (principal); S52.601B Unspecified fracture of lower end of right ulna, initial encounter for open fracture type I or II; F17.210 Nicotine dependence, cigarettes, uncomplicated; W18.30XA Fall on same level, unspecified, initial encounter; X50.1XXA Overexertion from prolonged static or awkward postures, initial encounter; Z11.59 Encounter for screening for other viral diseases
CPT/HCPCS: 25607; 25676; 25605; 29105; 36415; 73090; 73100; 73110; 80048; 85025; 87635; 94770; 96374; 96375; 96376; 97165; 99284; G0378; J0690; J1100; J1170; J1885; J2060; J2405; J2704; J3010